=== PATIENT | male | born 1950 | race Caucasian/White ===

== ENCOUNTER 2021-08-14 04:39 | Day surgery (SDC) | payer OTHER ==
[2021-08-12 12:16] VITALS: BMI 21.6
[2021-08-14 09:33] VITALS: TEMP 96.9
[2021-08-14 10:16] VITALS: BP 116/58; PULSE 71
== END 2021-08-14 10:07 | disposition home or self-care (01) ==
LOC: JASU-ENDO 04:39
PROVIDERS: ATTEND Internal Medicine Gastroenterology
PROC: 0DJD8ZZ Inspection of Lower Intestinal Tract, Via Natural or Artificial Opening Endoscopic (ICD-10-PCS; principal; 2021-08-14 09:30)
DX: Z12.11 Encounter for screening for malignant neoplasm of colon (principal); K64.8 Other hemorrhoids